=== PATIENT | male | born 1965 | race Caucasian/White ===

== ENCOUNTER 2018-04-05 09:03 | Emergency (ER) | payer OTHER ==
[2018-04-05 09:13] VITALS: BP 142/84
--- NOTE | 2018-04-05 09:31 | UC ---
Dental HPI - HPI Summary HPI Summary: 53 y/o male presents to the urgent care c/o c/o lower right tooth pain for one week. Regular dentist is Dr. Orozco - History of Current Complaint Chief Complaint: UCDentalProblem Stated Complaint: DENTAL PAIN Time Seen by Provider: 04/05/18 09:28 Hx Obtained From: Patient Pain Intensity: 4 - Allergies/Home Medications Allergies/Adverse Reactions: Allergies Allergy/AdvReac Type Severity Reaction Status Date / Time Penicillins Allergy Hives Verified 04/05/18 09:14 PMH/Surg Hx/FS Hx/Imm Hx - Surgical History Surgical History: Yes Surgery Procedure, Year, and Place: tonsillectomy,. Left ACL repair - Family History Known Family History: Positive: Hypertension - Social History Alcohol Use: Occasionally Substance Use Type: None Smoking Status (MU): Never Smoked Tobacco - Immunization History Most Recent Tetanus Shot: WITHIN LAST FEW YEARS Physical Exam - Summary Physical Exam Summary: Vital Signs Reviewed: Yes General: Well-Appearing, No Pain Distress, Well-Nourished Eyes: Positive: Conjunctiva Clear - PERRLA, EOMI, ENT: Positive: Normal ENT inspection, Hearing grossly normal, Pharynx normal, TMs normal - B/L external ear canals clear,. Negative: Tonsillar swelling, Tonsillar exudate, Trismus Dental: Positive: broken filling at molar #31 , Abscess @ - gingival swelling and erythema, tender to percussion. involves tissue surrounding the teeth #31 4 , Cervical Lymphadenopathy - anterior- Neck: Positive: Supple Respiratory: Positive: Chest non-tender, Lungs clear, Normal breath sounds, No respiratory distress Cardiovascular: Positive: RRR, No Murmur, Pulses Normal, Brisk Capillary Refill Abdomen Description: Positive: Nontender, No Organomegaly, Soft. Negative: CVA Tenderness (R), CVA Tenderness (L) Bowel Sounds: Positive: Present Musculoskeletal: Positive: Strength Intact, ROM Intact, No Edema Neurological Exam: Normal Psychological Exam: Normal Skin Exam: Normal Triage Information Reviewed: Yes Vital Signs: Initial Vital Signs Temp 96.8 F 04/05/18 09:11 Pulse 72 04/05/18 09:11 Resp 12 04/05/18 09:11 BP 142/84 04/05/18 09:11 Pulse Ox 99 04/05/18 09:11 Dental Complaint Course/Dx - Differential Dx/Diagnosis Differential Diagnosis/Dx: Dental Abscess, Dental Caries, Odontogenic Pain, Peridontic Disease Provider Diagnoses: 1- Dental abscess at molat #31. 2- Toothache. 3- elevated BP w/o Hx of HTN Discharge - Sign-Out/Discharge Documenting (check all that apply): Patient Departure - D/c home All imaging exams completed and their final reports reviewed: No Studies - Discharge Plan Condition: Stable Disposition: HOME Prescriptions: Clindamycin Cap(NF) [Clindamycin Cap 300 mg Cap(NF)] 300 mg PO TID #30 cap Ibuprofen TAB* [Motrin TAB* 800 MG] 800 mg PO Q6H PRN #30 tab PRN Reason: Pain Lidocaine 2% VISCOUS* [Xylocaine 2% Viscous*] 15 ml SWISH SPIT Q4H PRN #1 btl PRN Reason: dental pain Patient Education Materials: Dental Abscess (ED), Low-Sodium Diet (ED), Toothache (ED) Referrals: Max Ha MD [Primary Care Provider] - 2 Days Additional Instructions: 1-Please take full course of antibiotic to avoid resistance. 2- Take Ibuprofen Po q6-8hrs prn and altenate w/ Tylenol PO as instructed after meals to alleviate pain and swelling. Take Viscous Lidocaine to alleviate pain. 3- F/u with your Dentist or Dental List provided as soon as possible for further treatment. 4- If symptoms do not improve or worsen please return to the urgent care or f/u with your PCP for further evaluation and treatment 5-Your BP is elevated today. please decrease salt in your diet, monitor BP and if it continues to be elevated please f/u with your PCP for further management - Billing Disposition and Condition Condition: STABLE Disposition: Home
== END 2018-04-05 09:50 | disposition home or self-care (01) ==
LOC: UCEAST 09:03
DX: K04.7 Periapical abscess without sinus (principal); K08.89 Other specified disorders of teeth and supporting structures; R03.0 Elevated blood-pressure reading, without diagnosis of hypertension; Z88.0 Allergy status to penicillin
CPT/HCPCS: 99212; G0463

== ENCOUNTER 2018-05-06 07:07 | Emergency (ER) | payer OTHER ==
[2018-05-06 07:18] VITALS: BP 129/86
--- NOTE | 2018-05-06 07:36 | UC ---
Abdominal Pain Male HPI - HPI Summary HPI Summary: The patient is a 53-year-old male that presents here with a five-day history of diarrhea. He has had 5 date episodes of diarrhea day. He has been no blood in his diarrhea. He has no fever. He has crampy abdominal pain associated with the episodes of diarrhea. He has no nausea or vomiting. About 3-4 weeks ago he finished a course of clindamycin for dental work. 10 days ago he was camping in the [facility]. The friend that went camping with them has similar symptoms. - History of Current Complaint Chief Complaint: UCGI Stated Complaint: COUGH/UPSET STOMACH Time Seen by Provider: 05/06/18 07:22 Hx Obtained From: Patient Onset/Duration: Gradual Onset, Lasting Days Timing: Constant Severity Initially: Mild Severity Currently: Moderate Pain Intensity: 0 Pain Scale Used: 0-10 Numeric Character: Cramping Aggravating Factor(s): Nothing Alleviating Factor(s): Spontaneous Resolution Associated Signs And Symptoms: Positive: Diarrhea - Allergies/Home Medications Allergies/Adverse Reactions: Allergies Allergy/AdvReac Type Severity Reaction Status Date / Time Penicillins Allergy Hives Verified 05/06/18 07:14 PMH/Surg Hx/FS Hx/Imm Hx Previously Healthy: Yes - Surgical History Surgical History: Yes Surgery Procedure, Year, and Place: tonsillectomy,. Left ACL repair - Family History Known Family History: Positive: Cardiac Disease, Hypertension - Social History Alcohol Use: Occasionally Substance Use Type: None Smoking Status (MU): Never Smoked Tobacco - Immunization History Most Recent Tetanus Shot: WITHIN LAST FEW YEARS Review of Systems Constitutional: Negative Skin: Negative Eyes: Negative ENT: Nasal Discharge Respiratory: Cough Cardiovascular: Negative Gastrointestinal: Diarrhea Genitourinary: Negative Motor: Negative Neurovascular: Negative Musculoskeletal: Negative Neurological: Negative Psychological: Negative Is Patient Immunocompromised?: No All Other Systems Reviewed And Are Negative: Yes Physical Exam Triage Information Reviewed: Yes Appearance: Well-Appearing, No Pain Distress, Well-Nourished Vital Signs: Initial Vital Signs Temp 97.3 F 05/06/18 07:13 Pulse 64 05/06/18 07:13 Resp 14 05/06/18 07:13 BP 129/86 05/06/18 07:13 Pulse Ox 100 05/06/18 07:13 Eyes: Positive: Conjunctiva Clear ENT: Positive: Hearing grossly normal, Pharynx normal, Nasal congestion, Uvula midline. Negative: Nasal drainage, Trismus, Muffled voice, Hoarse voice, Dental tenderness, Sinus tenderness Neck: Positive: Supple Respiratory: Positive: Lungs clear, Normal breath sounds, No respiratory distress, No accessory muscle use Cardiovascular: Positive: RRR, No Murmur, Pulses Normal Abdomen Description: Positive: Nontender, No Organomegaly, Soft. Negative: CVA Tenderness (R), CVA Tenderness (L) Bowel Sounds: Positive: Present Musculoskeletal: Positive: ROM Intact, No Edema Neurological: Positive: Alert Psychological Exam: Normal Skin Exam: Normal Abd Pain Male Course/Dx - Differential Dx/Clinical Impression Provider Diagnoses: acute diarrhea Discharge - Sign-Out/Discharge Documenting (check all that apply): Patient Departure All imaging exams completed and their final reports reviewed: No Studies - Discharge Plan Condition: Stable Disposition: HOME Patient Education Materials: Acute Diarrhea (ED) Referrals: Max Ha MD [Primary Care Provider] - 4 Days (if not better) Additional Instructions: bring is stool for studies - Billing Disposition and Condition Condition: STABLE Disposition: Home
== END 2018-05-06 07:40 | disposition home or self-care (01) ==
LOC: UCCORT 07:07
DX: R19.7 Diarrhea, unspecified (principal); Z88.0 Allergy status to penicillin
CPT/HCPCS: 99212; G0463

== ENCOUNTER 2018-05-15 06:37 | Emergency (ER) | payer OTHER ==
--- NOTE | 2018-05-15 06:47 | ED ---
Abdominal Pain/Male - HPI Summary HPI Summary: Pt. is a 53-year-old male who presents emergency department for diarrhea and abdominal cramping 3 weeks. Associated symptoms of occasional bright red blood in stool. Patient states he is having about 10 episodes a day of diarrhea. No associate symptoms of fever, chills, chest she was breath, vomiting. Patient states he was on clindamycin for dental infection 3 weeks ago as well as camping in the end of her [place] 3 weeks ago just prior to diarrhea starting. Patient otherwise has no past medical history. Denies history of IBS, Crohn's, ulcerative colitis. Symptoms are moderate in severity. No current modifying factors. She was seen in [facility] several days ago and stool cultures were obtained. We'll attempt to get a stool cultures for C. difficile today. Stool cultures so far negative for Giardia Shigella. Stool culture is so far positive for aeromonas but is still pending final results. - History of Current Complaint Chief Complaint: EDAbdPain Stated Complaint: DIARRHEA Time Seen by Provider: 05/15/18 06:45 Hx Obtained From: Patient Pain Intensity: 5 - Allergies/Home Medications Allergies/Adverse Reactions: Allergies Allergy/AdvReac Type Severity Reaction Status Date / Time Penicillins Allergy Hives Verified 05/06/18 07:14 PMH/Surg Hx/FS Hx/Imm Hx Previously Healthy: Yes Endocrine/Hematology History: Denies: Hx Diabetes Comment Only: Hx Thyroid Disease - hyperthyroidism Cardiovascular History: Denies: Hx Hypertension Respiratory History: Denies: Hx Asthma, Hx Chronic Obstructive Pulmonary Disease (COPD) GI History: Denies: Hx Ulcer - Surgical History Surgery Procedure, Year, and Place: tonsillectomy,. Left ACL repair Infectious Disease History: No Infectious Disease History: Denies: Hx Hepatitis, Hx Human Immunodeficiency Virus (HIV), Traveled Outside the [place] in Last 30 Days - Family History Known Family History: Positive: Cardiac Disease, Hypertension - Social History Occupation: Employed Full-time Lives: With Family Alcohol Use: Occasionally Substance Use Type: Reports: None Smoking Status (MU): Never Smoked Tobacco Review of Systems Constitutional: Negative Negative: Fever, Chills Cardiovascular: Negative Respiratory: Negative Positive: Abdominal Pain, Diarrhea. Negative: Vomiting, Nausea Genitourinary: Negative Positive: Arthralgia Skin: Negative Neurological: Negative All Other Systems Reviewed And Are Negative: Yes Physical Exam Triage Information Reviewed: Yes Vital Signs On Initial Exam: Initial Vitals Temp Pulse Resp BP Pulse Ox 97.3 F 96 20 128/78 97 05/15/18 06:39 05/15/18 06:39 05/15/18 06:39 05/15/18 06:39 05/15/18 06:39 Vital Signs Reviewed: Yes Appearance: Positive: Well-Appearing - Pt. sititng on bed in NAD. Skin: Positive: Warm, Dry Head/Face: Positive: Normal Head/Face Inspection Eyes: Positive: Normal, EOMI ENT: Positive: Other - Oral mucosa is dry Neck: Positive: Supple Respiratory/Lung Sounds: Positive: Clear to Auscultation, Breath Sounds Present Cardiovascular: Positive: Normal, RRR Abdomen Description: Positive: Other: - Diffuse tenderness in all quadrants. No rebound tenderness or guarding. Neurological: Positive: Normal, CN Intact II-III Psychiatric: Positive: Affect/Mood Appropriate Diagnostics - Vital Signs Vital Signs Temp Pulse Resp BP Pulse Ox 05/15/18 06:39 97.3 F 96 20 128/78 97 - Laboratory Result Diagrams: 05/15/18 07:11 05/15/18 07:11 Lab Statement: Any lab studies that have been ordered have been reviewed, and results considered in the medical decision making process. Abdominal Pain Fem Course/Dx - Course Course Of Treatment: Pt. presenting with watery diarrhea after being on clindamycin as well as camping. He is afebrile with stable vital signs. Overall patient is very well-appearing. We'll give IV fluids for suspected dehydration and check labs. Given patient's pain we'll obtain CT scan. CBC shows a leukocytosis. CMP shows stable electrolytes. CAT scan is consistent with colitis, reading per radiology. C. diff is positive. Pt. declines rectal exam. Will treat with PO vancomycin. Advised pt. to schedule a f.u apt. with PCP. To increase fluids. Tylenol for pain as directed. To return to ER if symptoms change or worsen. - Diagnoses Provider Diagnoses: C. difficile colitis Discharge - Sign-Out/Discharge Documenting (check all that apply): Patient Departure - Discharge Plan Condition: Good Disposition: HOME Prescriptions: Vancomycin CAP* 125 mg PO QID 10 Days #40 cap Patient Education Materials: C Diff (Clostridium Difficile) Infection (ED) Referrals: Max Ha MD [Primary Care Provider] - Additional Instructions: Schedule a follow up appointment with your PCP Take full course of vancomycin as directed Increase fluids Tylenol for pain as directed Return to ER if symptoms change or worsen - Billing Disposition and Condition Condition: GOOD Disposition: Home
[2018-05-15] MEDS ORDERED: NS 0.9% 1000 ML* 1,000 ML IV ONE (07:00)
[2018-05-15 07:17] LABS: ABS Basophils 0.1 10^3/ul (0-0.2); ABS Eosinophils 0.3 10^3/ul (0-0.6); ABS Lymphocytes 1.4 10^3/ul (1.0-4.8); ABS Neutrophils 11.7 10^3/ul (1.5-7.7); ABS Nucleated RBC 0 10^3/ul; Eosinophil % 2.2 % (0-6); Hematocrit 47 % (42-52); Hemoglobin 16.1 g/dl (14.0-18.0); Lymphocyte % 9.4 % (25-47); Mean Corpuscular HGB Conc 34 g/dl (31-36); Mean Corpuscular Hemoglobin 31 pg (27-31); Mean Corpuscular Volume 89 fL (80-94); Nucleated Red Blood Cells % 0; Platelet Count 203 10^3/ul (150-450); Red Blood Count 5.27 10^6/ul (4.00-5.40); Red Cell Distribution Width 12 % (10.5-15); White Blood Count 14.5 10^3/ul (3.5-10.8)
[2018-05-15 07:34] LABS: EGFR Non-African American 80.6 (>60)
[2018-05-15] MEDS ORDERED: Iohexol 300* (CONTRAST) 10 ML SDV IV ONE (08:09)
--- NOTE | 2018-05-15 08:41 | RAD ---
Indication: Abdominal pain and diarrhea Contrast: Administered 121.2 ml of OMNIPAQUE 300 mg/ml CT of the abdomen and pelvis was performed after IV contrast administration. No oral contrast was given. Coronal and sagittal reconstructed images were obtained. No prior study is available for comparison. The lung bases demonstrate no pleural fluid, nodules or masses. Heart is normal size without pericardial effusion. Liver is normal in size. Low density lesion is noted in the medial segment of left lobe of liver which is water density likely representing a small cyst. No other focal lesions or intrahepatic duct dilatation is noted. The spleen is normal in size. The pancreas demonstrates no mass or pancreatic duct dilatation. Common duct is not dilated. The gallbladder demonstrates no calcified gallstones, pericholecystic fluid or wall thickening. No adrenal masses are noted. The kidneys demonstrate symmetric nephrograms without focal lesions. No hydronephrosis of either kidney is noted. Aorta and inferior vena cava are unremarkable. No retroperitoneal adenopathy is noted. No dilated loops of bowel are noted. The colon is filled with stool. There is submucosal edema in the splenic flexure extending to the descending colon and sigmoid colon. Hyperenhancing mucosa is noted. This is suspicious for colitis or inflammatory bowel disease. No abnormally dilated loops of small bowel are noted. Trace amount of free fluid is noted in the pelvis. The urinary bladder is unremarkable. No hernias are identified. The visualized bony structures are grossly unremarkable. Degenerative disc disease at L5-S1 is noted. IMPRESSION: SUBMUCOSAL EDEMA IN THE RECTUM, SIGMOID COLON AND DESCENDING COLON WITH HYPERENHANCING MUCOSA. THIS MAY REPRESENT COLITIS OR INFLAMMATORY BOWEL DISEASE. TRACE AMOUNT OF FREE FLUID IS NOTED. PROBABLE HEPATIC CYST. NO OTHER MASSES OR FLUID COLLECTIONS ARE IDENTIFIED.
[2018-05-15 09:31] VITALS: BP 125/77
== END 2018-05-15 09:30 | disposition home or self-care (01) ==
LOC: ED 06:37
DX: A04.72 Enterocolitis due to Clostridium difficile, not specified as recurrent (principal); K92.1 Melena; Z88.0 Allergy status to penicillin
CPT/HCPCS: 36415; 74177; 80053; 83605; 83690; 85025; 86140; 87493; 96360; 99282; Q9967